=== PATIENT | female | born 1995 | race Caucasian/White ===

== ENCOUNTER 2021-12-19 07:29 | Emergency (ER) | payer MEDICAID ==
[~2021-12-19] VITALS: Ht 157.5 cm; Wt 59.0 kg
[~2021-12-19 07:29] MED LIST: PREN-546 PO
[2021-12-19 07:31] VITALS: BP 110/73
--- NOTE | 2021-12-19 07:39 | NUR ---
PT AMBULATED TO BED 03.
--- NOTE | 2021-12-19 07:44 | NUR ---
PT PROVIDED URINE
--- NOTE | 2021-12-19 07:57 | NUR ---
C/O VAGINAL BLEEDING AFTER GIVING X 2.5 MONTHS AND C/O SYNCOPE X TODAY. LAST SEIZURE 2 YEARS AGO. PMH: SEIZURE, SUBSTANCE ABUSE
--- NOTE | 2021-12-19 08:10 | NUR ---
LAB AT BEDSIDE
[2021-12-19 08:32] LABS: BASOPHILS % (AUTO) 0.5 % (0.0-2.0); EOSINOPHILS # (AUTO) 0.1 K/uL (0-0.4); EOSINOPHILS % (AUTO) 2.6 % (0.0-4.0); HEMATOCRIT 38.3 % (36-48); HEMOGLOBIN 12.7 g/dL (12.0-16.0); LYMPHOCYTES # (AUTO) 1.5 K/uL (2.5-16.5); LYMPHOCYTES % (AUTO) 33.4 % (20.5-51.1); MEAN CORPUSCULAR HEMOGLOBIN 28 pg (27-31); MEAN CORPUSCULAR HGB CONC 33 g/dL (33-37); MEAN CORPUSCULAR VOLUME 85.1 fL (80-94); MONOCYTES # (AUTO) 0.5 K/uL (0.8-1.0); MONOCYTES % (AUTO) 10.2 % (1.7-9.3); NEUTROPHILS # (AUTO) 2.4 K/uL (1.8-7.7); NEUTROPHILS % (AUTO) 53.3 % (42.2-75.2); PLATELET COUNT (AUTO) 181 K/uL (140-450); RED CELL DISTRIBUTION WIDTH 14.4 % (11.6-13.7); WHITE BLOOD COUNT (AUTO) 4.5 K/uL (4.8-10.8)
[2021-12-19 08:43] LABS: ANION GAP 13.3 (8-16); CARBON DIOXIDE 26.6 mmol/L (21-32); CREATININE 0.8 mg/dL (0.6-1.3); POTASSIUM 3.9 mmol/L (3.5-5.1)
[2021-12-19 08:49] LABS: PROTHROMBIN TIME 9.5 secs (10.8-13.4)
[2021-12-19 10:27] VITALS: BP 112/14
--- NOTE | 2021-12-19 10:28 | NUR ---
Patient discharged with v/s stable. Written and verbal after care instructions given and explained. Patient verbalized understanding. Ambulatory with steady gait. All questions addressed prior to discharge. Advised to follow up with PMD.
[2021-12-19 11:50] LABS: APPEARANCE,URINE CLEAR (CLEAR); BILIRUBIN,URINE NEGATIVE (NEGATIVE); BLOOD, URINE TRACE-I (NEGATIVE); COLOR,URINE YELLOW (YELLOW); LEUKOCYTE ESTERASE ,URINE NEGATIVE (NEGATIVE); NITRITE, URINE NEGATIVE (NEGATIVE); UGLUCOSE NEGATIVE (NEGATIVE)
== END 2021-12-19 10:28 | disposition home or self-care (01) ==
LOC: MED 07:29
DX: R55 Syncope and collapse (principal); N93.8 Other specified abnormal uterine and vaginal bleeding; F17.210 Nicotine dependence, cigarettes, uncomplicated; F12.90 Cannabis use, unspecified, uncomplicated; Z79.899 Other long term (current) drug therapy
CPT/HCPCS: 36415; 76830; 80048; 81003; 81025; 84484; 85025; 85610; 85730; 86886; 86900; 86901; 93005; 99285; Q0092